=== PATIENT | male | born 1955 | race Caucasian/White ===

== ENCOUNTER 2021-05-07 20:41 | Emergency (ER) | payer BC ==
[2021-05-07] MEDS ORDERED: Take Home: Amoxicillin/Clavulanate K 875-125 MG Tab, 2 Tab Pack PO ONE (21:00)
[2021-05-07] MEDS ORDERED: Take Home: Ondansetron 4 MG Tab.DIS, 5 Tab Pack PO ONE (21:02)
== END 2021-05-07 21:35 | disposition home or self-care (01) ==
LOC: VM.ED 20:41
DX: K04.7 Periapical abscess without sinus (principal)
CPT/HCPCS: 99282; 99283; A9270-GY; Q0162

== ENCOUNTER 2022-11-03 18:11 | Emergency (ER) | payer BC ==
[2022-11-03 18:45] LABS: BASOPHILS PERCENT AUTO 0.4 % (0.2-1.2); EOSINOPHILS ABSOLUTE AUTO 0.3 x10^3/uL (0.0-0.5); EOSINOPHILS PERCENT AUTO 3.8 % (0.0-4.0); HEMATOCRIT 39.3 % (40.0-52.0); HEMOGLOBIN 14.4 g/dL (14.0-18.0); IMMATURE GRAN ABSOLUTE AUTO 0.02 x10^3/uL (0.00-0.07); LYMPHOCYTES ABSOLUTE AUTO 1.3 x10^3/uL (1.0-4.8); LYMPHOCYTES PERCENT AUTO 16.6 % (25.0-50.0); MEAN CORPUSCULAR HEMOGLOBIN 32.8 pg (26.0-32.0); MEAN CORPUSCULAR HGB CONC 36.6 g/dL (32.0-36.0); MEAN CORPUSCULAR VOLUME 89.5 fL (78.0-93.0); MONOCYTES ABSOLUTE AUTO 0.6 x10^3/uL (0.0-0.8); MONOCYTES PERCENT AUTO 7.2 % (2.0-11.0); NEUTROPHILS ABSOLUTE AUTO 5.5 x10^3/uL (1.8-7.7); NEUTROPHILS PERCENT AUTO 71.7 % (50.0-80.0); PLATELET COUNT,PLT 226 x10^3/uL (130-400); RED BLOOD CELL COUNT 4.39 x10^6/uL (4.5-6.0); WHITE BLOOD CELL COUNT,WBC 7.6 x10^3/uL (4.0-10.0)
[2022-11-03 19:09] LABS: PROTHROMBIN TIME 10.6 SEC (9.5-12.2)
[2022-11-03 19:12] LABS: A/G RATIO 1.22; ALANINE AMINOTRANSFERASE,ALT 41 U/L (16-63); ALBUMIN 3.9 g/dL (3.4-5.0); ALKALINE PHOSPHATASE 52 U/L (46-116); ASPARTATE AMNIOTRANSFERASE,AST 29 U/L (15-37); BILIRUBIN TOTAL 0.4 mg/dL (0.2-1.0); BLOOD UREA NITROGEN,BUN 12 mg/dL (7-18); C-REACTIVE PROTEIN 0.09 mg/dL (<=0.30); CALCIUM 8.8 mg/dL (8.5-10.1); CARBON DIOXIDE,CO2 27 mmol/L (21-32); CHLORIDE,CL 106 mmol/L (98-107); CREATININE 1.1 mg/dL (0.70-1.30); GLUCOSE RANDOM 115 mg/dL (70-99); MAGNESIUM 1.8 mg/dL (1.8-2.4); POTASSIUM,K 4.1 mmol/L (3.5-5.1); PROTEIN TOTAL,TP 7.1 g/dL (6.4-8.2); SODIUM,NA 143 mmol/L (136-145)
[2022-11-03 19:18] LABS: ANION GAP 14.1 mmol/L (5-15); ESTIMATED GFR 75 mL/min (>=60)
[2022-11-03] MEDS: Take Home: Naproxen 500 MG Tab, 4 Tab Pack PO ONE (19:31)
== END 2022-11-03 19:32 | disposition home or self-care (01) ==
LOC: VM.ED 18:11
DX: R07.89 Other chest pain (principal)
CPT/HCPCS: 36415; 71045; 80053; 83735; 85025; 85379; 85610; 85730; 86140; 93005; 99285; A9270

== ENCOUNTER 2022-11-08 05:58 | Emergency (ER) | payer BC | END 2022-11-08 06:19 | disposition home or self-care (01) | LOC: VM.ED 05:58 | DX: S01.20XA Unspecified open wound of nose, initial encounter (principal); W22.09XA Striking against other stationary object, initial encounter | CPT/HCPCS: 99282; 99283 ==